=== PATIENT | female | born 1960 | race Caucasian/White ===

== ENCOUNTER → 2016-03-26 | Outpatient (CLI) | payer BC, OTHER ==
[~2016-03-26] VITALS: Ht 165.1 cm; Wt 65.8 kg
[~2016-03-26] MED LIST: NO HOME MEDS; NS 1,000 ML IV SCH; PROPOFOL 200 MG/20 ML VIAL As Ordered ONE
--- NOTE | 2016-03-26 10:02 | ROOR ---
Patient Name: Consuelo Thrasher Procedure Date: 03/26/2016 9:38 AM Date of : 1960 Age: 55 Room: [facility] Gender: Female Note Status: Finalized Procedure: Colonoscopy to Cecum + Biopsy Polypectomy Indications: Colon cancer screening in patient at increased risk: Family history of 1st-degree relative with colon polyps Providers: Ramon Patterson MD Referring MD: Lo Palumbo NP Requesting Provider: Medicines: Monitored Anesthesia Care Complications: No immediate complications. Procedure: Pre-Anesthesia Assessment: - The heart rate, respiratory rate, oxygen saturations, blood pressure, adequacy of pulmonary ventilation, and response to care were monitored throughout the procedure. The Colonoscope was introduced through the anus and advanced to the cecum, identified by appendiceal orifice and ileocecal valve. The colonoscopy was performed without difficulty. The patient tolerated the procedure well. The quality of the bowel preparation was excellent. Findings: The perianal and digital rectal examinations were normal. Non-bleeding internal hemorrhoids were found during retroflexion. The hemorrhoids were small and Grade I (internal hemorrhoids that do not prolapse). A small polyp was found at 40 cm proximal to the anus. The polyp was sessile. The polyp was removed with a cold biopsy forceps. Resection and retrieval were complete. No additional abnormalities were found on retroflexion. Impression: - Non-bleeding internal hemorrhoids. - One small polyp at 40 cm proximal to the anus, removed with a cold biopsy forceps. Resected and retrieved. - The exam was otherwise normal to the cecum. Recommendation: - Patient has a contact number available for emergencies. The signs and symptoms of potential delayed complications were discussed with the patient. Return to normal activities tomorrow. Written discharge instructions were provided to the patient. - Discharge patient to home. - Continue present medications. - Await pathology results. - Repeat colonoscopy for surveillance based on pathology results. - Return to referring physician. - Telephone GI clinic for pathology results in 1 week. - The findings and recommendations were discussed with the patient's family. Ramon Patterson MD Ramon Patterson MD 03/26/2016 10:02:06 AM This report has been signed electronically. Number of Addenda: 0 Note Initiated On: 03/26/2016 9:38 AM Estimated Blood Loss: Estimated blood loss: none.
[2016-03-26 10:18] VITALS: BP 116/71
== END | disposition home or self-care (01) ==
LOC: M OPP 08:52
PROVIDERS: ATTEND Internal Medicine Gastroenterology
DX: Z12.11 Encounter for screening for malignant neoplasm of colon (principal); Z83.71 Family history of colonic polyps; K64.0 First degree hemorrhoids; D12.5 Benign neoplasm of sigmoid colon; F33.9 Major depressive disorder, recurrent, unspecified; Z97.4 Presence of external hearing-aid

== ENCOUNTER → 2016-05-10 | Outpatient (CLI) | payer BC, OTHER ==
[~2016-05-10] MED LIST changes: -NS 1,000 ML IV SCH; -PROPOFOL 200 MG/20 ML VIAL As Ordered ONE
[2016-05-10 14:13] LABS: ALBUMIN 3.6 GM/DL (3.2-5.2); ALBUMIN/GLOBULIN RATIO 1.16 (1.00-1.93); ALKALINE PHOSPHATASE 79 U/L (45-117); ALT/SGPT 25 U/L (12-78); ANION GAP 5 MEQ/L (8-16); AST/SGOT 17 U/L (15-37); BILIRUBIN,TOTAL 0.7 MG/DL (0.2-1.0); BLOOD UREA NITROGEN 12 MG/DL (7-18); CALCIUM LEVEL 8.6 MG/DL (8.5-10.1); CARBON DIOXIDE LEVEL 29 MEQ/L (21-32); CHLORIDE LEVEL 107 MEQ/L (98-107); CHOLESTEROL LEVEL 228 MG/DL (<200); CREATININE FOR GFR 0.51 MG/DL (0.55-1.02); FREE T4 0.88 NG/DL (0.76-1.46); GLOMERULAR FILTRATION RATE > 60.0 (>51); GLUCOSE, FASTING 90 MG/DL (70-105); MAGNESIUM LEVEL 2.1 MG/DL (1.8-2.4); SODIUM LEVEL 141 MEQ/L (136-145); TOTAL PROTEIN 6.7 GM/DL (6.4-8.2); TRIGLYCERIDES LEVEL 99 MG/DL (<150)
[2016-05-12 00:06] LABS: Lyme Disease IgG/IgM Antibodie <0.91 ISR (0.00-0.90); Lyme Disease IgM Ab Quantitati <0.80 index (0.00-0.79); TISSUE TRANSGLUTAMINASE IgG <2 U/mL (0-5)
== END ==
LOC: M SMT 10:59
PROVIDERS: ATTEND Family Medicine
DX: Z13.220 Encounter for screening for lipoid disorders (principal); M25.50 Pain in unspecified joint; M79.1 Myalgia

== ENCOUNTER → 2016-05-17 | Outpatient (CLI) | payer BC, OTHER ==
--- NOTE | 2016-05-17 11:01 | REP ---
Pelvic ultrasound including transabdominal and endovaginal imaging. The bladder is poorly distended. The uterus is anteverted, however the fundus is slightly retroflexed. The uterus is normal size measuring 7.4-0.7 x 4.8 cm. The myometrium is diffusely heterogeneous, however no focal lesions are identified. The endometrium is not thickened measuring 2.6 mm. However, there is a 5.7 mm hyperechoic lesion within the endometrium, possibly a polyp. The right ovary is normal size measuring 1.4 x 1.3 x 0.9 cm. There is no dominant right ovarian mass or cyst. The left ovary is obscured by bowel and could not be visualized on transabdominal or endovaginal imaging. There is a trace of fluid in the pelvis. Nabothian cysts of the cervix are incidentally noted. Impression: Possible endometrial polyp as described. The left ovary could not be visualized, is obscured by bowel. Otherwise, essentially negative pelvic ultrasound. Signed by Marbin Moser MD 05/17/2016 10:53 A
== END ==
LOC: M RAD 09:40
PROVIDERS: ATTEND Family Medicine
DX: N95.0 Postmenopausal bleeding (principal)

== ENCOUNTER → 2016-09-20 | Outpatient (CLI) | payer BC, OTHER ==
[2016-09-20 19:31] LABS: FREE T4 1.32 NG/DL (0.76-1.46)
[2016-09-21 10:21] LABS: THYROID PEROXIDASE ANTIBODY < 28.0 U/ML (<60.0)
== END ==
LOC: M WUC 16:36
PROVIDERS: ATTEND Physician Assistant
DX: E06.0 Acute thyroiditis (principal)

== ENCOUNTER → 2016-09-25 | Outpatient (CLI) | payer BC, OTHER ==
--- NOTE | 2016-09-25 10:09 | REP ---
THYROID ULTRASOUND: Real-time sonographic evaluation of the thyroid performed. Both lobes of the thyroid are relatively normal in size, right lobe measuring 4.2 x 2.1 c 1.9 cm and left lobe 4.1 x 1.2 x 0.9 cm. There is a complex solid and cystic nodule in the right lobe which appears to contain some tiny scattered calcifications. The mass measures 2.5 x 1.7 x 2.0 cm. No other thyroid mass is seen. Two lymph nodes adjacent to the right lobe of the thyroid measure 8 x 6 and 9 x 3 mm. IMPRESSION: Complex cystic and solid nodule right lobe of thyroid containing multiple tiny calcifications. Recommend ultrasound guided FNA. Signed by Marbin Jordan MD 09/25/2016 12:38 P
== END ==
LOC: M RAD 08:43
PROVIDERS: ATTEND Physician Assistant
DX: E04.1 Nontoxic single thyroid nodule (principal)

== ENCOUNTER → 2016-10-19 | Outpatient (CLI) | payer BC ==
--- NOTE | 2016-10-19 16:19 | REPMRS ---
Patient History The patient states she had a clinical breast exam in Family history of premenopausal breast cancer in paternal grandmother at age 90. Benign core biopsy of the right breast, October 31, 2011. Digital Woman Screen Mammo: October 19, 2016 - Exam #: [id number] Bilateral CC and MLO view(s) were taken. Technologist: Yelena Zhao, Technologist Prior study comparison: October 06, 2015, digital woman screen mammo performed at [facility] to [facility]. July 02, 2011, right breast digital mammo diagnostic unilateral, performed at [facility]. June 27, 2011, digital woman screen mammo performed at [facility]. FINDINGS: The breast tissue is heterogeneously dense. This may lower the sensitivity of mammography. There is a marker clip projecting in the superior aspect the right breast where previous mammography showed calcifications. The calcifications are no longer visible. There is a moderate amount of heterogeneously dense fibroglandular tissue which is fairly symmetric. There is no interval development of dominant mass, architectural distortion, or clustered microcalcification typical of malignancy. There has been no change in the appearance of the mammogram from the prior studies. ASSESSMENT: BI-RADS/ACR category 2 mammogram. Benign finding(s). Recommendation Routine screening mammogram of both breasts in 1 year (for women over age 40). This mammogram was interpreted with the aid of an FDA-approved computer-aided dectection system. Electronically Signed By: Jeffery West MD 10/19/16 [id number]
== END ==
LOC: M WHC 14:35
PROVIDERS: ATTEND Nurse Practitioner Family
DX: Z12.31 Encounter for screening mammogram for malignant neoplasm of breast (principal)

== ENCOUNTER → 2016-10-19 | Outpatient (REF) | payer OTHER | LOC: M SFHCWAGY 15:34 | PROVIDERS: ATTEND Nurse Practitioner Family | DX: Z12.4 Encounter for screening for malignant neoplasm of cervix (principal) ==

== ENCOUNTER → 2017-07-31 | Outpatient (CLI) | payer BC, OTHER | LOC: M WUC 16:49 | DX: M25.572 Pain in left ankle and joints of left foot (principal) ==

== ENCOUNTER → 2018-06-13 | Outpatient (CLI) | payer BC, OTHER ==
[2018-06-13 18:17] LABS: FERRITIN 44 NG/ML (8-252); FREE T4 0.97 NG/DL (0.76-1.46); IRON (FE) 87 UG/DL (50-170); PERCENT SATURATION 23.1 % (13.2-45.0); TOTAL IRON BINDING CAPACITY 376 UG/DL (250-450)
[2018-06-13 18:18] LABS: BASO # 0.1 10^3/uL (0.0-0.2); BASO % 1.4 % (0.0-1.0); EOS # 0.1 10^3/uL (0.0-0.50); EOS % 2.6 % (0.0-3.0); HEMATOCRIT 42.5 % (36.0-47.0); HEMOGLOBIN 13.6 g/dl (12.0-15.5); LYMPH # 1.4 10^3/uL (1.5-4.5); MEAN CORPUSCULAR HEMOGLOBIN 30.4 pg (27.0-33.0); MEAN CORPUSCULAR VOLUME 95.1 fl (80.0-96.0); MONO # 0.4 10^3/uL (0.0-0.8); MONO % 9.7 % (0.0-5.0); NEUTROPHILS # 2.2 10^3/uL (1.8-7.7); NEUTROPHILS % 51.6 % (36.0-66.0); PLATELET COUNT, AUTOMATED 216 10^3/uL (150-450); RED BLOOD COUNT 4.47 10^6/uL (4.00-5.40); WHITE BLOOD COUNT 4.2 10^3/uL (4.0-10.0)
[2018-06-13 18:19] LABS: THYROGLOBULIN ANTIBODY < 15.0 U/ML (<60.0); THYROID PEROXIDASE ANTIBODY < 28.0 U/ML (<60.0); TOTAL 25(OH) VITAMIN D 18.7 NG/ML (30.0-100.0)
[2018-06-13 18:20] LABS: VITAMIN B12 LEVEL 661 PG/ML (247-911)
== END ==
LOC: M SMT 11:07
PROVIDERS: ATTEND Family Medicine
DX: E55.9 Vitamin D deficiency, unspecified (principal); F34.1 Dysthymic disorder

== ENCOUNTER → 2018-08-01 | Outpatient (REF) | payer OTHER ==
[2018-08-06 16:11] LABS: HPV HYBRID CAPTURE II Negative (Negative)
== END ==
LOC: M SFHCWAGY 12:18
PROVIDERS: ATTEND Nurse Practitioner Family
DX: Z12.4 Encounter for screening for malignant neoplasm of cervix (principal)

== ENCOUNTER → 2018-08-01 | Outpatient (CLI) | payer BC ==
--- NOTE | 2018-08-01 15:16 | REPMRS ---
Patient History The patient states she had a clinical breast exam in 07/2018. Family history of premenopausal breast cancer at age 90 in paternal grandmother. Benign core biopsy of the right breast, October 31, 2011. Digital Woman Screen Mammo: August 01, 2018 - Exam #: [id number] Bilateral CC and MLO view(s) were taken. Technologist: Aurea Garcia, Technologist Prior study comparison: October 19, 2016, digital woman screen mammo performed at [facility]. October 06, 2015, digital woman screen mammo performed at [facility]. July 02, 2011, right breast digital mammo diagnostic unilateral, performed at [facility]. FINDINGS: The breast tissue is heterogeneously dense. This may lower the sensitivity of mammography. There is a needle biopsy marker clip in the right breast. There is a moderate amount of heterogeneously dense fibroglandular tissue which is fairly symmetric. There is no interval development of dominant mass, architectural distortion, or clustered microcalcification typical of malignancy. There has been no change in the appearance of the mammogram from the prior studies. 3-D tomosynthesis shows no additional findings. Assessment: BI-RADS/ACR category 2 mammogram. Benign Findings. Recommendation Routine screening mammogram of both breasts in 1 year (for women over age 40). This patient's Lifetime Breast Cancer RIsk is estimated at 10.5 %. This mammogram was interpreted with the aid of an FDA-approved computer-aided dectection system. Electronically Signed By: Jeffery West MD 08/01/18 [id number]
== END ==
LOC: M WHC 11:48
PROVIDERS: ATTEND Nurse Practitioner Family
DX: Z12.31 Encounter for screening mammogram for malignant neoplasm of breast (principal)

== ENCOUNTER → 2019-12-04 | Outpatient (CLI) | payer SELFPAY | LOC: M LABSMTC 11:48 | PROVIDERS: ATTEND Pediatrics | DX: Z20.828 Contact with and (suspected) exposure to other viral communicable diseases (principal) ==

== ENCOUNTER → 2019-12-14 | Outpatient (CLI) | payer SELFPAY | LOC: M LABSMTC 13:59 | PROVIDERS: ATTEND Pediatrics | DX: Z20.828 Contact with and (suspected) exposure to other viral communicable diseases (principal) ==

== ENCOUNTER → 2020-01-04 | Outpatient (CLI) | payer SELFPAY | LOC: M LABSMTC 14:20 | PROVIDERS: ATTEND Pediatrics | DX: Z20.828 Contact with and (suspected) exposure to other viral communicable diseases (principal) ==

== ENCOUNTER → 2020-01-18 | Outpatient (CLI) | payer SELFPAY | LOC: M LABSMTC 10:12 | PROVIDERS: ATTEND Pediatrics | DX: Z20.828 Contact with and (suspected) exposure to other viral communicable diseases (principal) ==

== ENCOUNTER → 2020-02-01 | Outpatient (CLI) | payer SELFPAY | LOC: M LABSMTC 09:43 | PROVIDERS: ATTEND Pediatrics | DX: Z20.828 Contact with and (suspected) exposure to other viral communicable diseases (principal) ==

== ENCOUNTER → 2020-02-19 | Outpatient (CLI) | payer SELFPAY | LOC: M LABSMTC 11:20 | PROVIDERS: ATTEND Pediatrics | DX: Z20.822 Contact with and (suspected) exposure to COVID-19 (principal) ==

== ENCOUNTER → 2020-02-25 | Outpatient (CLI) | payer SELFPAY | LOC: M LABSMTC 13:45 | PROVIDERS: ATTEND Pediatrics | DX: Z20.822 Contact with and (suspected) exposure to COVID-19 (principal) ==

== ENCOUNTER → 2020-04-04 | Outpatient (CLI) | payer SELFPAY | LOC: M LABSMTC 10:44 | PROVIDERS: ATTEND Pediatrics | DX: Z20.828 Contact with and (suspected) exposure to other viral communicable diseases (principal) ==

== ENCOUNTER → 2020-05-12 | Outpatient (CLI) | payer SELFPAY | LOC: M LABSMTC 14:17 | PROVIDERS: ATTEND Pediatrics | DX: Z20.822 Contact with and (suspected) exposure to COVID-19 (principal) ==

== ENCOUNTER → 2020-07-05 | Outpatient (CLI) | payer SELFPAY | LOC: M LABSMTC 14:21 | PROVIDERS: ATTEND Pediatrics | DX: Z20.822 Contact with and (suspected) exposure to COVID-19 (principal) ==

== ENCOUNTER → 2020-08-02 | Outpatient (CLI) | payer BC ==
--- NOTE | 2020-08-03 07:57 | REPMRS ---
Patient History The patient states she had a clinical breast exam in July 2020. Family history of premenopausal breast cancer at age 90 in paternal grandmother. Benign core biopsy of the right breast, October 31, 2011. No breast complaints today Patient signed the MRS sheet Patient had her 1st covid vaccine 07/25/20-right arm-[employer] Priors on PACS Patient Identification Verified Digital Woman Screen Mammo: August 02, 2020 - Exam #: [id number] Bilateral CC and MLO view(s) were taken. Technologist: Nancy Leon, Technologist Prior study comparison: August 01, 2018, bilateral digital woman screen mammo performed at [facility]. October 19, 2016, digital woman screen mammo performed at [facility]. October 06, 2015, digital woman screen mammo performed at [facility]. FINDINGS: There are scattered fibroglandular densities. The Volpara volumetric breast density category is: B. There is a moderate amount of residual fibroglandular tissue which is fairly symmetric. There is no interval development of dominant mass, architectural distortion, or grouped microcalcification typical of malignancy. There has been no change in the appearance of the mammogram from the prior studies. 3-D tomosynthesis shows no additional findings. Assessment: BI-RADS/ACR category 1 mammogram. Negative Mammogram. Recommendation Routine screening mammogram of both breasts in 1 year (for women over age 40). This patient's [facility] Lifetime Breast Cancer RIsk is estimated at 10.0 %. This mammogram was interpreted with the aid of an FDA-approved computer-aided dectection system. Electronically Signed By: Jeffery West MD 08/03/20 [id number]
== END ==
LOC: M WHC 16:04
PROVIDERS: ATTEND Nurse Practitioner Women's Health
DX: Z12.31 Encounter for screening mammogram for malignant neoplasm of breast (principal); Z80.3 Family history of malignant neoplasm of breast

== ENCOUNTER → 2020-08-02 | Outpatient (REF) | payer OTHER, BC | LOC: M SFHCWAGY 10:03 | PROVIDERS: ATTEND Nurse Practitioner Women's Health | DX: Z12.4 Encounter for screening for malignant neoplasm of cervix (principal); Z01.419 Encounter for gynecological examination (general) (routine) without abnormal findings ==

== ENCOUNTER → 2020-09-21 | Outpatient (CLI) | payer BC, OTHER | LOC: M LABSMTC 10:35 | PROVIDERS: ATTEND Pediatrics | DX: Z20.822 Contact with and (suspected) exposure to COVID-19 (principal) | CPT/HCPCS: C9803; U0003 ==

== ENCOUNTER → 2022-04-09 | Outpatient (CLI) | payer BC, OTHER | LOC: M RAD 17:28 | PROVIDERS: ATTEND Physician Assistant | DX: S90.32XA Contusion of left foot, initial encounter (principal); X58.XXXA Exposure to other specified factors, initial encounter; Y92.9 Unspecified place or not applicable; Y93.9 Activity, unspecified; Y99.9 Unspecified external cause status ==

== ENCOUNTER → 2022-08-07 | Outpatient (CLI) | payer BC, OTHER ==
[2022-08-07 14:21] LABS: BASO # 0.1 10^3/uL (0.0-0.2); BASO % 1.8 % (0.0-1.0); EOS # 0.1 10^3/uL (0.0-0.5); EOS % 1.8 % (0.0-3.0); HEMATOCRIT 41.9 % (36.0-47.0); HEMOGLOBIN 13.5 g/dl (12.0-15.5); LYMPH # 1.4 10^3/uL (1.5-5.0); LYMPH % 29.1 % (24.0-44.0); MEAN CORPUSCULAR HEMOGLOBIN 30.3 pg (27.0-33.0); MEAN CORPUSCULAR HGB CONC 32.2 g/dl (32.0-36.5); MEAN CORPUSCULAR VOLUME 94.2 fl (80.0-96.0); MONO # 0.5 10^3/uL (0.0-0.8); MONO % 9.3 % (2.0-8.0); NEUTROPHILS # 2.8 10^3/uL (1.5-8.5); NEUTROPHILS % 57.4 % (36.0-66.0); PLATELET COUNT, AUTOMATED 215 10^3/uL (150-450); RED BLOOD COUNT 4.45 10^6/uL (4.00-5.40); WHITE BLOOD COUNT 4.9 10^3/uL (4.0-10.0)
[2022-08-07 14:47] LABS: ALKALINE PHOSPHATASE 74 U/L (46-116); ALT/SGPT 32 U/L (7.0-40); AST/SGOT 14 U/L (<34); BILIRUBIN,TOTAL 0.9 MG/DL (0.3-1.2); BLOOD UREA NITROGEN 12 MG/DL (9-23); CALCIUM LEVEL 9.7 MG/DL (8.5-10.1); CARBON DIOXIDE LEVEL 26 MMOL/L (20-31); CHLORIDE LEVEL 106 MMOL/L (98-107); CHOLESTEROL LEVEL 204 MG/DL (<200); CHOLESTEROL RISK RATIO 3.11 (<5); CREATININE FOR GFR 0.56 MG/DL (0.55-1.30); FREE T4 1.02 NG/DL (0.89-1.76); GLOMERULAR FILTRATION RATE > 60.0 (>51); GLUCOSE, FASTING 94 MG/DL (60-100); HDL CHOLESTEROL 65.5 MG/DL (>40); LDL CHOLESTEROL 122.5 MG/DL (<100); NON-HDL-C 138.5 MG/DL; SODIUM LEVEL 137 MMOL/L (136-145); TOTAL 25(OH) VITAMIN D 23.1 NG/ML (20.0-100.0); TOTAL PROTEIN 6.7 G/DL (5.7-8.2); TRIGLYCERIDES LEVEL 80 MG/DL (<150)
== END ==
LOC: M PLALAB 09:35
PROVIDERS: ATTEND Family Medicine
DX: Z13.0 Encounter for screening for diseases of the blood and blood-forming organs and certain disorders involving the immune mechanism (principal); Z13.29 Encounter for screening for other suspected endocrine disorder; Z13.220 Encounter for screening for lipoid disorders; E55.9 Vitamin D deficiency, unspecified

== ENCOUNTER → 2023-07-25 | Outpatient (CLI) | payer BC, OTHER | LOC: M WHC 11:12 | PROVIDERS: ATTEND Nurse Practitioner Family | DX: Z12.31 Encounter for screening mammogram for malignant neoplasm of breast (principal) ==

== ENCOUNTER → 2023-07-25 | Outpatient (REF) | payer OTHER ==
[2023-07-27 12:28] LABS: HPV APTIMA Not Detected (Not Detected)
== END ==
LOC: M SFHCWAGY 14:58
PROVIDERS: ATTEND Nurse Practitioner Family
DX: Z12.4 Encounter for screening for malignant neoplasm of cervix (principal); R87.610 Atypical squamous cells of undetermined significance on cytologic smear of cervix (ASC-US)
CPT/HCPCS: 87624; G0123

== ENCOUNTER → 2024-10-02 | Outpatient (CLI) | payer OTHER | LOC: M WHC 14:02 | PROVIDERS: ATTEND Family Medicine | DX: Z12.31 Encounter for screening mammogram for malignant neoplasm of breast (principal); N95.8 Other specified menopausal and perimenopausal disorders; Z13.820 Encounter for screening for osteoporosis; R92.323 Mammographic fibroglandular density, bilateral breasts; M85.89 Other specified disorders of bone density and structure, multiple sites ==